=== PATIENT | female | born 1990 | race Two or more races ===

== ENCOUNTER 2020-02-12 16:06 | Observation (INO) | payer OTHER ==
[2020-02-12] MEDS ORDERED: IV RINGERS,LACTATED 1000ML 1,000 ML IV SCH (16:13)
[2020-02-12] MEDS ORDERED: ACETAMINOPHEN 325 MG TABLET. PO PRN (16:15)
[2020-02-12] MEDS ORDERED: ONDANSETRON PF 4 MG/2 ML VIAL. IVP PRN (16:15)
[2020-02-12 16:31] LABS: BILIRUBIN,URINE NEGATIVE (NEG); CLARITY,URINE CLEAR; COLOR,URINE YELLOW; NITRITE,URINE NEGATIVE (NEG); PH,URINE 7.5 (<5.0-8.0); PROTEIN,URINE NEGATIVE (NEG-TRACE); UROBILINOGEN,URINE 0.2 mg/dL (0.2 mg/dL)
[2020-02-12 16:38] LABS: AMPHETAMINE/METHAMPHETAMINE NEG (NEG); BACTERIA,URINE MODERATE /HPF (0-FEW); BARBITURATES NEG (NEG); BENZODIAZEPINES NEG (NEG); CANNABINOIDS NEG (NEG); COCAINE NEG (NEG); METHADONE NEG (NEG); OPIATES NEG (NEG); PHENCYCLIDINE NEG (NEG); RBC,URINE 0 /HPF (0-2)
[2020-02-12] MEDS ORDERED: BETAMET ACET&NA PHOS 30 MG/5 ML VIAL. IM SCH (17:00)
[2020-02-12 17:34] LABS: BASO % 1 % (0-3); EOS # 0.2 x10^3/uL (0.0-0.7); EOS % 2 % (0-3); HEMATOCRIT 33.4 % (36.0-47.0); HEMOGLOBIN 11.6 g/dL (12.0-15.5); LYMPH # 1.4 x10^3/uL (1.0-4.8); LYMPH % 15 % (24-48); MEAN CORPUSCULAR HEMOGLOBIN 29 pg (25-35); MEAN CORPUSCULAR HGB CONC 35 g/dL (31-37); MEAN CORPUSCULAR VOLUME 84 fL (79-100); MONO # 0.6 x10^3/uL (0.0-1.1); MONO % 6 % (0-9); NEUT # 7.7 x10^3/uL (1.8-7.7); NEUT % 77 % (31-73); PLATELET COUNT 246 x10^3/uL (140-400); RED BLOOD COUNT 3.99 x10^6/uL (3.50-5.40); RED CELL DISTRIBUTION WIDTH 13.8 % (11.5-14.5); WHITE BLOOD COUNT 9.9 x10^3/uL (4.0-11.0)
--- NOTE | 2020-02-12 18:29 | RAD ---
Exam: Ultrasound OB limited Indication: , weight and MITCH Technique: Real-time grayscale and color Doppler images of the pelvis were obtained by the department healthcare administration internship. Comparisons: None FINDINGS: Within the uterus there is a single live intrauterine gestation with heart rate measured at 139 bpm. measurements as follows: BPD: 6.9 cm corresponding to 27 weeks 5 days Head circumference: 24.1 cm corresponding to 26 weeks 1 day Abdominal circumference: 22.2 cm corresponding to 26 weeks 4 days Femur length: 4.8 cm corresponding to 26 weeks 0 days Estimated weight 937 g MITCH measured at 12.7 cm. Placenta is posterior there is increase vascular flow posterior to the placenta IMPRESSION: 1. Single live intrauterine gestation measuring 26 4 days by current ultrasound. Correlate with LMP. 2. Placenta is posterior with some posterior hypervascular area in thickened appearance. This may relate to contraction. Correlate for bleeding. Short-term follow-up imaging is recommended to reassess. 3. MITCH measured at 12.7 cm. Electronically signed by: Gavin Magaña MD (02/12/2020 6:26 PM) [id number]
== END 2020-02-12 18:55 | disposition home or self-care (01) ==
LOC: 3 SO LND 16:06
PROVIDERS: ADMIT Obstetrics & Gynecology; ATTEND Obstetrics & Gynecology
DX: O26.852 Spotting complicating pregnancy, second trimester (principal); O99.342 Other mental disorders complicating pregnancy, second trimester; F41.9 Anxiety disorder, unspecified; Z3A.26 26 weeks gestation of pregnancy; Z79.899 Other long term (current) drug therapy
CPT/HCPCS: 36415; 76815; 80307; 81001; 85025; 86850; 86900; 86901; 87086; 96372; G0378; G0379; J2791